=== PATIENT | male | born 1940 | race African-American/Black ===

== ENCOUNTER 2016-10-13 09:45 | Inpatient (IN) ==
[2016-10-13 10:13] LABS: Basophils % 0.7 % (0.0-0.8); Eosinophils # 0.1 10*3/uL (0.0-0.87); Eosinophils % 2.1 % (0.00-10.9); Hematocrit 35.4 VOL% (42.0-52.0); Hemoglobin 12.1 GM/DL (14.0-18.0); Immature Granulocytes % 0.2 %; Immature Granulocytes Absolute 0.01 #; Lymphocytes # 1.1 10*3/uL (1.4-4.0); Lymphocytes % 18.8 % (21.2-54.2); Mean Corpuscular HGB Conc 34.2 GM/DL (32-36); Mean Corpuscular Hemoglobin 30 PG (27-34); Mean Corpuscular Volume 88.1 FL (87-102); Mean Platelet Volume 9.6 FL (9.6-12.0); Monocytes # 0.3 10*3/uL (0.11-0.8); Neutrophils # 4.1 10*3/uL (1.4-7.4); Neutrophils % 72.2 % (38.7-73.9); Platelet Count 195 T/CUMM (130-400); Red Blood Count 4.02 MC/CUMM (3.8-5.5); White Blood Count 5.6 T/CUMM (4-12)
--- NOTE | 2016-10-13 10:31 | CT Report ---
History is left arm numbness. Comparison 10/30/2010 The ventricles are normal in size. No acute intracranial hemorrhage, mass effect, or evidence of acute cortical stroke seen. Impression: No acute intracranial pathology seen. The CT exam was performed using one or more of the following dose reduction techniques: Automated exposure control, adjustment of the mA and/or kV according to patient size, or use of iterative reconstruction technique. PROCEDURE INTERPRETED AT [facility] DEPARTMENT OF RADIOLOGY Final Report Signed by: Dr. Deloris Lam
--- NOTE | 2016-10-13 10:32 | XRay Report ---
History is cardiomegaly Comparison 09/17/2015 The heart is mildly enlarged. Hilar contours unchanged The eventration left diaphragm again seen without congestive failure or confluent infiltrates seen Confluent shadows overlie the right base Impression: Mild cardiomegaly PROCEDURE INTERPRETED AT [facility] DEPARTMENT OF RADIOLOGY Final Report Signed by: Dr. Deloris Lam
[2016-10-13 10:35] LABS: Eosinophils 1 % (0-10); Hypochromasia 1+; Lymphocytes 13 % (20-55); Segmented Neutrophils 78 % (50-85); Total Cells Counted 100
[2016-10-13 10:36] LABS: Microcytosis Slight; Platelet Estimate Adequate
--- NOTE | 2016-10-13 10:53 | EKG Report ---
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
[2016-10-13 10:54] LABS: Albumin 3.7 G/DL (3.4-5.0); Bilirubin,Total 0.4 MG/DL (0.2-1.0); Calcium 9.3 MG/DL (8.5-10.1); Osmolality,Calculated 283.3 MOS/KG (273-304); Potassium 4.1 MMOL/L (3.5-5.1); Total Protein 6.7 G/DL (6.4-8.3)
--- NOTE | 2016-10-13 11:21 | Emergency Department Note ---
Nikko Rubalcava Brooke, am scribing for, and in the presence of, Davonte Andrews MD 10:14. Darryl Rubalcava Phillip K, MD, personally performed the services described in this documentation, ascribed by Carolann El in my presence, and it is both accurate and complete . Arrival - Arrival Chief Complaint: Neuro Stated Complaint: Left arm numb and hand ED Nursing Triage Note: pt went to bed at 2130 last night normal - pt states that he woke about 2 am with left arm numbness and tingling - no slurred speech - Mode of Arrival: Ambulatory Limitations: No Limitations Source: Patient, RN Notes Reviewed Time Seen by Provider: 10/13/16 10:05 - History of Present Illness HPI Narrative: Patient is a 75 year old male who presents to the ED with c/o left arm and hand numbness and weakness. Patient says he woke up around 0200 this morning with the numbness and weakness. He says he was fine before going to bed last night. 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 He says his left leg has been weak, "for a while," and says it did not change with the left arm/hand weakness and numbness. He denies having a headache. He does not have a history of TIA or CVA but does have PMHx of HTN, NIDDM, diverticulitis, and AR. Patient has not taken any of his medications this morning, including an ASA that he normally does take daily. Patient's Primary Care Provider is Dr. Morfin and his Human Factors Advisor Lead is Dr. Bey. Onset (ago): hour(s) (7) Allergies/Adverse Reactions: Allergies Allergy/AdvReac Type Severity Reaction Status Date / Time No Known Allergies Allergy Verified 08/22/14 11:05 Home Medications: Home Medications Medication Instructions Recorded Confirmed Type Probenecid [Benemid] 500 mg PO BEDTIME 08/22/14 10/13/16 History Quinapril HCl [Accupril] 40 mg PO DAILY 08/22/14 10/13/16 History Terazosin [Hytrin] 10 mg PO BEDTIME 08/22/14 10/13/16 History glipiZIDE [Glipizide] 10 mg PO BID 08/22/14 10/13/16 History metFORMIN [Glucophage] 1,000 mg PO BID W/MEALS 08/22/14 10/13/16 History Omeprazole 20 mg PO BEDTIME 09/17/15 10/13/16 History Aspirin EC Tab 81 mg PO DAILY 10/13/16 10/13/16 History Gabapentin 600 mg PO TID 10/13/16 10/13/16 History Review of System - Review of System 12 point system: reviewed and no additional remarkable complaints except as stated - Review of System Constitutional: Absent: fever Respiratory: Absent: respiratory distress Skin: Absent: rash Neurological: Present: weakness (left arm/hand), numbness (left arm/hand). Absent: headache Medical,Surgical,& Family Hx - Medical History Cardio: History of: Hypertension, [place] Endocrine: History of: Diabetes Mellitus (NIDDM) Gastrointestinal: History of: Diverticulitis/ Diverticulosis - Social History Smoking Status: Never smoker Frequency of Alcohol Use: None Type of Drug Use: None Exam Vital Signs: Vital Signs Temperature 98.5 F 10/13/16 10:14 Pulse Rate 61 10/13/16 10:50 Respiratory Rate 21 10/13/16 10:50 Blood Pressure 145/81 10/13/16 10:50 O2 Sat by Pulse Oximetry 99 10/13/16 10:50 - General General appearance: alert, in no apparent distress - Head Head exam: Present: atraumatic, normocephalic - Eye Eye exam: Present: normal appearance, PERRL, EOMI - ENT ENT exam: Present: normal exam - Neck Neck exam: Present: normal inspection - Chest Chest inspection: Present: normal inspection, symmetric chest wall rise - Respiratory Respiratory exam: Present: normal lung sounds bilaterally - Cardiovascular Cardiovascular exam: Present: regular rate, normal rhythm, normal heart sounds - Abdominal Exam Abdominal exam: Present: soft, normal bowel sounds. Absent: distention, tenderness - Extremities Exam Extremities exam: Present: normal inspection - Back Exam Back exam: Present: normal inspection - Neurological Exam Neurological exam: Present: alert, oriented X3, other (Decreased fine motor coordination in the left hand. Decreased sensation in the left arm. No facial assymetry but there is some slight numbness to the left side of the face. Weakness in the left arm but normal in left leg.) - Psychiatric Psychiatric exam: Present: normal affect, normal mood - Skin Skin exam: Present: warm, dry, intact, normal color Course Course Narrative: Patient discussed with the hospitalist. Results - Labs CBC & BMP: 10/13/16 10:08 10/13/16 10:23 Lab Results: I have reviewed the patients labs Labs: Laboratory Tests 10/13/16 10:08 WBC 5.6 RBC 4.02 Hgb 12.1 L Hct 35.4 L MCV 88.1 MCH 30 MCHC 34.2 RDW 12.0 Plt Count 195 MPV 9.6 Neut % (Auto) 72.2 Lymph % (Auto) 18.8 L [place] % (Auto) 6.0 Eos % (Auto) 2.1 Baso % (Auto) 0.7 Neut # (Auto) 4.1 Lymph # (Auto) 1.1 L [place] # (Auto) 0.3 Eos # (Auto) 0.1 Baso # (Auto) 0.0 Total Counted 100 Immature Gran % 0.2 Nucleated RBC % 0.0 Immature Gran # 0.01 Segmented Neutrophils 78 Lymphocytes 13 L Monocytes 8 Eosinophils 1 Nucleated RBCs # 0.00 Platelet Estimate Adequate Hypochromasia 1+ Microcytosis Slight Laboratory Tests 10/13/16 10/13/16 10/13/16 10:08 10:23 10:42 Total Counted 100 Segmented Neutrophils 78 Lymphocytes 13 L Monocytes 8 Eosinophils 1 Platelet Estimate Adequate Hypochromasia 1+ Microcytosis Slight Sodium 141 Potassium 4.1 Chloride 106 Carbon Dioxide 28 Anion Gap 11.1 BUN 11 Creatinine 1.10 GFR Calculation 80 BUN/Creatinine Ratio 10.00 Glucose 163 H POC Glucose 191 H Calculated Osmolality 283.3 Calcium 9.3 Total Bilirubin 0.40 AST 27 ALT 29 Alkaline Phosphatase 62 Total Protein 6.7 Albumin 3.7 Globulin 3.0 Albumin/Globulin Ratio 1.2 - Diagnostic Findings Procedure: Chest x-ray: report reviewed by me (Mild Cardiomegaly.), CT: report reviewed by me (CT head/brain wo con: No acute intracranial pathology seen.) Disposition Clinical Impression: Cerebrovascular accident, Transient cerebral ischemia Case discussed with: patient, patient's family Disposition: Still a Patient Condition: Guarded Additional Instructions: Admit to the hospitalist. Consult neurology.
[2016-10-13 11:23] LABS: Apearance,Urine CLEAR (Clear); Bacteria,Urine Occasional /HPF (Few); Bilirubin,Urine Negative (Negative); Blood, Urine Negative (Negative); Glucose,Urine (UA) Negative (Negative); Ketones,Urine Negative (Negative); Nitrite,Urine Negative (Negative); Protein,Urine Negative; RBC,Urine 1 /HPF (0-4); Squamous Epithelial Cell,Urine Occasional /HPF (0-10); Urine Color Yellow (Yellow); Urine Urobilinogen < 2.0 EU/DL (0.2-1.0); WBC,Urine 1 /HPF (0-6)
--- NOTE | 2016-10-13 11:58 | Hospitalist History & Physical ---
Assessment and Plan - Time spent with patient Time spent with patient: Greater than 30 minutes (1) Weakness of left upper extremity Status: Acute Assessment and plan: Patient notes left upper extremity weakness, more prominent in the hand than the arm. He has been admitted for CVA rule out. His CT is negative for any intracranial abnormalities. Will obtain bedside swallow study. Carotid Dopplers. Possible MRA of the brain. PT/OT. Consult neurology. Current Visit: Yes (2) Diabetes mellitus Status: Acute Assessment and plan: Diabetic consistent diet. Accu-Cheks ACHS. Sliding scale insulin per protocol. Hemoglobin A1c. Hold metformin. Current Visit: Yes (3) Hypertension Status: Acute Assessment and plan: Continue home medications. Current Visit: Yes History of Present Illness Chief complaint: Right arm/hand weakness History of present illness: Mr. Ramirez is a 75 year old -[place] male with a past medical history significant for [place] x3 (age 32, 33 and 37), diabetes mellitus, hypertension who presents to the [facility] ED today with complains of left arm and hand weakness having onset at 0200 this morning. The patient reports that he woke this morning around 0200 and noticed that his left hand felt "numb and cold". Thinking it was just cool from sleeping under the fan, he put his arm under the cover and attempted to return to sleep. When he got up this morning, he still felt "funny" and called his son to bring him to the ED. He denies slurred speech , weakness in his left leg or facial numbness. Patient notes that he has recently started to notice lapses in his memory and an inability to verbally express himself. On exam, he does have reduced strength in his left hand as compared to his right. However, the patient admits this is better than this morning. He is now able to grasp a pen and pull himself up with his left arm. His sensory function to the dorsal aspect of his left hand is reduced. Proprioception and graphesthesia are intact. There is no facial droop or assymetry. Speech is intact, audible, intelligible and appropriate. Head CT shows no evidence of acute intracranial pathology. CXR shows mild cardiomegaly. Lab work reveals: WBC 5.6, hemoglobin 12.1, hematocrit 35.4, platelets 195, sodium 141, potassium 4.1, chloride 106, BUN 11, creatinine 1.1, glucose 163. Urinalysis unremarkable. Patient is a full code. Patient's son was at bedside. Case has been discussed with Dr. Alvarado, admitting physician, the patient will be admitted to the hospital medicine service for further evaluation and treatment. Of note, his recently had a stroke and is hospitalized in a [facility]. Home Medications Medication Instructions Recorded Confirmed Type Probenecid [Benemid] 500 mg PO BEDTIME 08/22/14 10/13/16 History Quinapril HCl [Accupril] 40 mg PO DAILY 08/22/14 10/13/16 History Terazosin [Hytrin] 10 mg PO BEDTIME 08/22/14 10/13/16 History glipiZIDE [Glipizide] 10 mg PO BID 08/22/14 10/13/16 History metFORMIN [Glucophage] 1,000 mg PO BID W/MEALS 08/22/14 10/13/16 History Omeprazole 20 mg PO BEDTIME 09/17/15 10/13/16 History Aspirin EC Tab 81 mg PO DAILY 10/13/16 10/13/16 History Gabapentin 600 mg PO TID 10/13/16 10/13/16 History Allergies Allergy/AdvReac Type Severity Reaction Status Date / Time No Known Allergies Allergy Verified 08/22/14 11:05 Medical,Surgical,& Family Hx - Medical History Cardio: History of: Hypertension, [place] Endocrine: History of: Diabetes Mellitus (NIDDM) Gastrointestinal: History of: Diverticulitis/ Diverticulosis - Family History Family History: Reports;: Family Diabetes, Family Heart Disease, Family Hypertension - Social History Smoking Status: Never smoker Frequency of Alcohol Use: None Type of Drug Use: None Marital Status: Lives With:: Spouse Functional capacity: independent ambulation 12 point system: reviewed and no additional remarkable complaints except as stated Exam - Constitutional Vitals: Period Temp Pulse Resp BP Sys/Quigley Pulse Ox Last 24 Hr 98.5 F-98.5 F 49-84 16-21 139-151/54-84 21-99 General appearance: normal weight, no acute distress - Head Head exam: Present: normal inspection, normocephalic, atraumatic - Eye Eye exam: Present: EOMI. Absent: nystagmus Pupils: Present: PIERO, normal accommodation - ENT ENT exam: Present: normal exam - Neck Neck exam: Absent: lymphadenopathy, tenderness - Respiratory Respiratory exam: Present: clear to auscultation bilaterally. Absent: rales, rhonchi, wheezes - Cardiovascular Cardiovascular exam: Present: bradycardia. Absent: carotid bruit, gallop, rubs - GI/Abdominal GI/Abdominal exam: Present: normal bowel sounds, soft. Absent: rebound - Extremities Exam Extremities exam: Present: normal capillary refill, full ROM. Absent: edema - Neurological Exam Neurological exam: Present: alert, oriented X3, CN II-XII intact - Expanded Neurological Exam Neurological exam: Absent: ataxia Patient oriented to: Present: person, place, time Speech: Present: fluid speech Cranial nerves: EOM's intact: Normal, facial palsy with forehead movement: Normal, facial palsy without forehead movement: Normal, facial sensation: Normal , nystagmus: Normal, tongue deviation: Normal Cerebellar function: finger to nose: Normal Sensory exam: lower extremity light touch: Normal, lower extremity pin prick: Normal, UE 2 point discrimination: Abnormal Left, upper extremity light touch: Abnormal Left, upper extremity pin prick: Abnormal Left Neuro motor strength exam: LUE: 3, RUE: 5, LLE: 4, RLE: 5 Coma Scale Eye Opening: Spontaneous Coma Scale Motor Response: Obeys Commands Coma Scale Verbal Response: Oriented Coma Scale Total: 15 - Psychiatric Psychiatric exam: Present: normal affect, normal mood - Skin Skin exam: Present: normal color, warm, dry, intact Results - Labs CBC & BMP: 10/13/16 10:08 10/13/16 10:23 Lab Results: I have reviewed the past 24 hour labs - EKG EKG results: interpreted by LAUREL, sinus rhythm EKG shows: bradycardia - Diagnostic Findings Procedure: Chest x-ray: image reviewed by me, report reviewed by me ( cardiomegaly), CT: image reviewed by me, report reviewed by me (head: no intracranial abnormality) Quality Measures - Stroke Onset of Symptoms Date: 10/13/16 Onset of Symptoms Time: 05:00
[2016-10-13] MEDS ORDERED: GLUCAGON 1 MG VIAL IM PRN (13:49)
[2016-10-13] MEDS ORDERED: DEXTROSE 50% 25 GM/50 ML VIAL IV PRN (13:49)
[2016-10-13 15:52] LABS: Cholesterol 171 MG/DL (50-200); HDL Cholesterol 61 MG/DL (40-60); Triglycerides 122 MG/DL (2-150); Troponin I Only < 0.015 NG/ML (0.00-0.045); VLDL CHOLESTEROL 24.4 MG/DL
[2016-10-13 16:34] LABS: Barbiturates Screen,Urine Negative (Negative); Benzodiazepines Screen,Urine Negative (Negative); Cannabinoid Screen,Urine Negative (Negative); Opiate Screen,Urine Negative (Negative); Phencyclidine Screen,Urine Negative (Negative)
--- NOTE | 2016-10-13 16:48 | Magnetic Resonance Report ---
History: Left-sided weakness Date: 10/13/2016 Study: MRI brain without IV contrast Comparison exam: Noncontrast CT head 10/13/2016 The brain was imaged in 3 planes on the 1.5 Vita magnet without IV contrast, to include diffusion, T2, FLAIR, gradient-echo, and T1-weighted sequences. The exam was performed on the day of admission. The ventricles are midline in position without evidence of hydrocephalus. There is no Chiari I malformation. There is no evidence of acute ischemia on the diffusion sequence. There is some mild patchy increased FLAIR and T2 signal in the periventricular white matter without mass effect compatible with changes of small vessel disease. There is no mass effect or parenchymal hemorrhage. There is no extra-axial hematoma. There is a normal flow void in the superior sagittal sinus. There is no gross flow abnormality in the [place] area. There is no obvious cerebellopontine angle mass. Impression: No evidence of acute ischemia. Chronic changes of small vessel disease in the periventricular white matter PROCEDURE INTERPRETED AT [facility] DEPARTMENT OF RADIOLOGY Final Report Signed by: Dr. Nereida Jamison
[2016-10-13] MEDS: GABAPENTIN 600 MG TABLET PO SCH ×2 (17:30→21:09)
[2016-10-13] MEDS: QUINAPRIL 20 MG TABLET PO SCH (17:30)
[2016-10-13] MEDS: ASPIRIN EC 81 MG TABLET PO SCH (17:30)
[2016-10-13] MEDS: INSULIN LISPRO 100 UNIT/ML SUBCUT SCH ×2 (17:36→21:12)
--- NOTE | 2016-10-13 17:41 | Ultrasound Report ---
US carotid duplex BI Indication: Left-sided weakness. Comparison: None. Technique: Multiple longitudinal and transverse real-time sonographic images of the bilateral carotid arterial systems are obtained with grayscale, spectral, and color Doppler analysis. Findings: Peak systolic velocities within the right CCA, proximal ICA, and distal ICA are 55, 64, and 70 cm/s respectively. Peak systolic velocities within the left CCA, proximal ICA, and distal ICA are 70, 55, and 94 cm/s respectively. ICA/CCA ratios on the right and left are 1.3 and 1.3 respectively. Antegrade flow demonstrated within the bilateral vertebral arteries. Grayscale imaging demonstrates moderate bilateral atherosclerotic plaque. IMPRESSION: No convincing sonographic evidence of significant (50% or greater) narrowing of either cervical internal carotid artery. Indirect NASCET criteria utilized. PROCEDURE INTERPRETED AT [facility] DEPARTMENT OF RADIOLOGY Final Report Signed by: Dr Samm Rivera
[2016-10-13] MEDS ORDERED: TERAZOSIN 5 MG CAPSULE PO SCH (21:00)
[2016-10-13] MEDS ORDERED: PROBENECID 500 MG TABLET PO SCH (21:00)
[2016-10-13] MEDS: glipiZIDE 10 MG TABLET PO SCH (21:10)
[2016-10-14 03:18] LABS: Basophils % 0.5 % (0.0-0.8); Eosinophils # 0.1 10*3/uL (0.0-0.87); Eosinophils % 3.4 % (0.00-10.9); Hematocrit 33.6 VOL% (42.0-52.0); Hemoglobin 11.2 GM/DL (14.0-18.0); Immature Granulocytes % 0.3 %; Immature Granulocytes Absolute 0.01 #; Lymphocytes # 1.2 10*3/uL (1.4-4.0); Lymphocytes % 32.2 % (21.2-54.2); Mean Corpuscular HGB Conc 33.3 GM/DL (32-36); Mean Corpuscular Hemoglobin 30 PG (27-34); Mean Corpuscular Volume 88.4 FL (87-102); Mean Platelet Volume 9.5 FL (9.6-12.0); Monocytes # 0.3 10*3/uL (0.11-0.8); Monocytes % 8.7 % (1.7-12.7); Neutrophils # 2.1 10*3/uL (1.4-7.4); Neutrophils % 54.9 % (38.7-73.9); Platelet Count 168 T/CUMM (130-400); Red Cell Distribution Width 11.9 % (9.3-17.3); White Blood Count 3.8 T/CUMM (4-12)
[2016-10-14 03:56] LABS: Calcium 9.3 MG/DL (8.5-10.1); Osmolality,Calculated 283.8 MOS/KG (273-304); Potassium 3.6 MMOL/L (3.5-5.1)
[2016-10-14 04:56] LABS: Eosinophils 3 % (0-10); Lymphocytes 31 % (20-55); Segmented Neutrophils 59 % (50-85); Total Cells Counted 100
[2016-10-14 04:57] LABS: Platelet Estimate Normal
[2016-10-14 04:58] LABS: Hypochromasia Slight
--- NOTE | 2016-10-14 08:39 | Neurology Consult Note ---
History of Present Illness History of present illness: Mr. Ramirez is a 75 year old -[place] gentleman with a past medical history significant for [place] x3 , diabetes mellitus, hypertension who presents to the ER yesterday with complains of left arm and hand weakness having onset at 0200 in the morning. The patient reports that he woke this morning around 0200 and noticed that his left hand felt "numb and cold". Thinking it was just cool from sleeping under the fan, he put his arm under the cover and attempted to return to sleep. When he got up in the morning, he still felt "funny" and called his son to bring him to the ED. He denies slurred speech, weakness in his left leg or facial numbness. Patient notes that he has recently started to notice lapses in his memory and an inability to verbally express himself. MRI of the brain is unremarkable for any acute pathology. Carotid Dopplers is unremarkable Home Medications Medication Instructions Recorded Confirmed Type Probenecid [Benemid] 500 mg PO BEDTIME 08/22/14 10/13/16 History Quinapril HCl [Accupril] 40 mg PO DAILY 08/22/14 10/13/16 History Terazosin [Hytrin] 10 mg PO BEDTIME 08/22/14 10/13/16 History glipiZIDE [Glipizide] 10 mg PO BID 08/22/14 10/13/16 History metFORMIN [Glucophage] 1,000 mg PO BID W/MEALS 08/22/14 10/13/16 History Omeprazole 20 mg PO BEDTIME 09/17/15 10/13/16 History Aspirin EC Tab 81 mg PO DAILY 10/13/16 10/13/16 History Gabapentin 600 mg PO TID 10/13/16 10/13/16 History Allergies Allergy/AdvReac Type Severity Reaction Status Date / Time No Known Allergies Allergy Verified 08/22/14 11:05 12 point system: reviewed and no additional remarkable complaints except as stated Medical,Surgical,& Family Hx - Medical History Cardio: History of: Hypertension, [place] Endocrine: History of: Diabetes Mellitus (NIDDM) Gastrointestinal: History of: Diverticulitis/ Diverticulosis - Surgical History Cardiac Surgeries: Sugical HX of: Cardiac Catheterization - Family History Family History: Reports;: Family Diabetes, Family Heart Disease, Family Hypertension, Additional Family History (Father, Arthritis) - Social History Smoking Status: Never smoker Frequency of Alcohol Use: None Type of Drug Use: None Exam - Constitutional Vitals: Period Temp Pulse Resp BP Sys/Quigley Pulse Ox Last 24 Hr 97.6 F-98.5 F 46-84 16-22 115-202/54-98 21-100 Exam: GENERAL: Patient is in no acute distress. NECK: Neck is supple. There is no JVD. No carotid bruits present. No thyroid masses. CVS: First and second heart sounds are normal. There is no S3 present. Regular rate and rhythm. RESPIRATORY: Lungs are clear to auscultation without any rales or rhonchi. ABDOMEN: Soft and non-tender. Bowel sounds are present. There is no hepatosplenomegaly. EXT: There is no palpable edema. Peripheral pulses are present. Skin: No rashes Central Nervous system: General: Alert, awake and Oriented x 3 Speech: Fluent Comprehension: Intact and normal Facial expressions: Normal Cranial Nerves: CN1/Olfactory: Normal CN II/ Optic: Normal, Visual [place] unreliable CN III, and : PIERO & EOMI CN V: Normal & intact CN VII: face is symmetric CNVIII: Normal CN XI/X/XI/XII: Intact and Normal Motor: Bulk and Tone is normal. Strength in the right 5/5 Strength in the left 3-4/5 with predominant weakness in the left radial nerve distribution Sensory: Grossly intact for all the modalities of PP, LT and temp sense Reflexes: 1+ and symmetrical Cerebellar function: Normal finger to nose and heel to barros testing. 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
[2016-10-14] MEDS: GABAPENTIN 600 MG TABLET PO SCH (09:17)
[2016-10-14] MEDS: glipiZIDE 10 MG TABLET PO SCH (09:17)
[2016-10-14] MEDS: QUINAPRIL 20 MG TABLET PO SCH (09:17)
[2016-10-14] MEDS: ASPIRIN EC 81 MG TABLET PO SCH (09:18)
[2016-10-14] MEDS: INSULIN LISPRO 100 UNIT/ML SUBCUT SCH ×2 (09:20→12:33)
--- NOTE | 2016-10-14 11:37 | Discharge Summary ---
Hospital Course - Hospital Course Hospital Course: Pt is a 75 year old male with a hsitory of CAD, DM2, HTN who presented to the hospital with left arm numbness. He was placed in observation and TIA/stroke workup was done. CT was negative for any acute pathology. MRI of the brain was negative for acute stroke. Carotid Dopplers showed no rate limiting stenosis. EKG showed sinus bradycardia at approximately 50 bpm with a left anterior fascicular block. Chest x-ray showed mild cardiomegaly without any other pathology noted. Hemoglobin A1c was 6.4. Total cholesterol was 171, triglycerides 122, HDL of 61, and LDL of 92. TSH and vitamin B12 levels were pending at the time of dictation. Neurology evaluated the patient and noted a mononeuropathy of the left radial nerve. He recommended continuing on aspirin and outpatient follow-up for further evaluation and treatment. Once he was cleared by all consultants, patient was discharged to home for ongoing care. 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 Specialty Discharge - Follow Up or Referrals Follow up with: Eduardo Duffy MD [Physician] - 1 Week md, pcp [Other] - 2 Weeks Discharge Plan - Discharge Data Disposition: Disch To Home/Self Care Condition at Discharge: Stable Discharge Diet: diabetic diet, heart healthy Activity: resume usual activities as tolerated, as per physical therapy Contact your physician if you experience:: fever over 101, Difficulty voiding, Redness or swelling, Nausea/Vomiting, Shortness of breath, Bleeding, pain uncontrolled by pain medications - Discharge Medications Continue Terazosin [Hytrin] 10 mg PO BEDTIME Probenecid [Benemid] 500 mg PO BEDTIME Quinapril HCl [Accupril] 40 mg PO DAILY glipiZIDE [Glipizide] 10 mg PO BID Omeprazole 20 mg PO BEDTIME Gabapentin 600 mg PO TID Aspirin EC Tab 81 mg PO DAILY metFORMIN [Glucophage] 1,000 mg PO BID W/MEALS #0 - Follow Up or Referral Follow Up: Eduardo Duffy MD [Physician] - 1 Week - Forms/Instructions Exam - Constitutional Vitals: Period Temp Pulse Resp BP Sys/Quigley Pulse Ox Last 24 Hr 97.6 F-98.3 F 46-62 16-22 115-202/61-98 95-100 Exam: GEN: A and O x 3, NAD HEENT: Pupils are equal round and reactive to light. Extraocular muscles are intact. Sclerae clear. Conjunctive are pink. Nares are patent no discharge or epistaxis noted. Oropharynx is clear. No posterior pharyngeal lesions or thrush noted. Neck is supple. No lymphadenopathy or thyromegaly appreciated. No JVD Cardiovascular exam reveals regular rate and rhythm normal S1-S2 no obvious murmurs rubs or gallop Lungs are clear to auscultation bilaterally with good aeration nonlabored breathing noted Abdomen is soft nontender nondistended positive bowel sounds no organomegaly or masses appreciated Extremity exam is warm and well-perfused no clubbing cyanosis or edema Neuro exam reveals cranial nerves II through XII are intact. Motor exam revealed 4 out of 5 strength of the left upper extremity from the elbow to the wrist with 5 out of 5 strength of the other extremities. Sensation was decreased from the elbow to the fingers on the left arm. Otherwise sensory exam was grossly intact. He had a normal finger nose exam. Gait was not assessed. Babinski was absent. No clonus noted. +2 patellar and brachial reflexes bilaterally. Discharge Results Procedures and tests throughout hospitalization: Pending Orders 10/15/16 04:00 Basic Metabolic Panel IN AM Comp Blood Count Auto Diff IN AM 10/16/16 04:00 Basic Metabolic Panel IN AM Comp Blood Count Auto Diff IN AM Labs on day of discharge: Labs from last 24 hours 10/14/16 10/14/16 10/14/16 10:56 09:22 03:08 WBC RBC Hgb Hct MCV MCH MCHC RDW Plt Count MPV Neut % (Auto) Lymph % (Auto) [place] % (Auto) Eos % (Auto) Baso % (Auto) Neut # (Auto) Lymph # (Auto) [place] # (Auto) Eos # (Auto) Baso # (Auto) Total Counted Immature Gran % Nucleated RBC % Immature Gran # Segmented Neutrophils Lymphocytes Monocytes Eosinophils Nucleated RBCs # Platelet Estimate Hypochromasia Sodium 144 Potassium 3.6 Chloride 106 Carbon Dioxide 32 Anion Gap 9.6 BUN 12 Creatinine 1.00 GFR Calculation 90 BUN/Creatinine Ratio 12.00 Glucose 67 L POC Glucose 111 H 164 H Hemoglobin A1c Calculated Osmolality 283.8 Calcium 9.3 Troponin I Triglycerides Cholesterol LDL Cholesterol VLDL Cholesterol HDL Cholesterol Heart Disease Risk Ratio Urine Opiates Screen Ur Barbiturates Screen Ur Phencyclidine Scrn U Amphetamine/Methamph U Benzodiazepines Scrn U Cocaine Metab Screen U Cannabinoids Screen 10/14/16 10/13/16 10/13/16 03:08 20:36 20:10 WBC 3.8 L D RBC 3.80 Hgb 11.2 L Hct 33.6 L MCV 88.4 MCH 30 MCHC 33.3 RDW 11.9 Plt Count 168 MPV 9.5 L Neut % (Auto) 54.9 Lymph % (Auto) 32.2 [place] % (Auto) 8.7 Eos % (Auto) 3.4 Baso % (Auto) 0.5 Neut # (Auto) 2.1 Lymph # (Auto) 1.2 L [place] # (Auto) 0.3 Eos # (Auto) 0.1 Baso # (Auto) 0.0 Total Counted 100 Immature Gran % 0.3 Nucleated RBC % 0.0 Immature Gran # 0.01 Segmented Neutrophils 59 Lymphocytes 31 Monocytes 7 Eosinophils 3 Nucleated RBCs # 0.00 Platelet Estimate Normal Hypochromasia Slight Sodium Potassium Chloride Carbon Dioxide Anion Gap BUN Creatinine GFR Calculation BUN/Creatinine Ratio Glucose POC Glucose 137 H Hemoglobin A1c Calculated Osmolality Calcium Troponin I 0.027 Triglycerides Cholesterol LDL Cholesterol VLDL Cholesterol HDL Cholesterol Heart Disease Risk Ratio Urine Opiates Screen Ur Barbiturates Screen Ur Phencyclidine Scrn U Amphetamine/Methamph U Benzodiazepines Scrn U Cocaine Metab Screen U Cannabinoids Screen 10/13/16 10/13/16 10/13/16 17:37 16:33 14:51 WBC RBC Hgb Hct MCV MCH MCHC RDW Plt Count MPV Neut % (Auto) Lymph % (Auto) [place] % (Auto) Eos % (Auto) Baso % (Auto) Neut # (Auto) Lymph # (Auto) [place] # (Auto) Eos # (Auto) Baso # (Auto) Total Counted Immature Gran % Nucleated RBC % Immature Gran # Segmented Neutrophils Lymphocytes Monocytes Eosinophils Nucleated RBCs # Platelet Estimate Hypochromasia Sodium Potassium Chloride Carbon Dioxide Anion Gap BUN Creatinine GFR Calculation BUN/Creatinine Ratio Glucose POC Glucose 166 H Hemoglobin A1c Calculated Osmolality Calcium Troponin I 0.019 < 0.015 Triglycerides 122 Cholesterol 171 LDL Cholesterol 92.0 VLDL Cholesterol 24.4 HDL Cholesterol 61 H Heart Disease Risk Ratio 2.80 Urine Opiates Screen Ur Barbiturates Screen Ur Phencyclidine Scrn U Amphetamine/Methamph U Benzodiazepines Scrn U Cocaine Metab Screen U Cannabinoids Screen 10/13/16 10/13/16 14:50 10:02 WBC RBC Hgb Hct MCV MCH MCHC RDW Plt Count MPV Neut % (Auto) Lymph % (Auto) [place] % (Auto) Eos % (Auto) Baso % (Auto) Neut # (Auto) Lymph # (Auto) [place] # (Auto) Eos # (Auto) Baso # (Auto) Total Counted Immature Gran % Nucleated RBC % Immature Gran # Segmented Neutrophils Lymphocytes Monocytes Eosinophils Nucleated RBCs # Platelet Estimate Hypochromasia Sodium Potassium Chloride Carbon Dioxide Anion Gap BUN Creatinine GFR Calculation BUN/Creatinine Ratio Glucose POC Glucose Hemoglobin A1c 6.4 H Calculated Osmolality Calcium Troponin I Triglycerides Cholesterol LDL Cholesterol VLDL Cholesterol HDL Cholesterol Heart Disease Risk Ratio Urine Opiates Screen Negative Ur Barbiturates Screen Negative Ur Phencyclidine Scrn Negative U Amphetamine/Methamph Negative U Benzodiazepines Scrn Negative U Cocaine Metab Screen Negative U Cannabinoids Screen Negative DS: Provider Date of admission: 10/13/16 11:39 Primary care physician: . No PCP Attending physician on admission: Tony Alvarado MD Consults: 10/13/16 13:27 Consult to Dietitian [CONS] Routine Reason for Dietitian: Diet Recommendations Consult Comment: Diverticulitis, Dentures (Can't eat meat), Eats all vegetables 10/13/16 14:13 Consult to Case Mgmt/Social Srvs [CONS] Routine Reason for Case Mgmt/Social Srvs: Discharge Planning Consult to Occupational Therapy [CONS] Routine Reason for Occupational Therapy: Evaluate and Treat Consult Comment: Stroke Consult to Physical Therapy [CONS] Routine Reason for Physical Therapy: Evaluate and Treat Consult Comment: stroke 10/13/16 14:48 Consult to Physician [CONS] Routine Comment: Left sided weakness Consulting Provider: Eduardo Duffy Consulting Provider Notified: Yes When should Consulting Provider be notified: Now Person Notified: PRISCILLA Date Notified: 10/13/16 Time Notified: 15:55 10/14/16 09:11 Consult to Case Mgmt/Social Srvs [CONS] Routine Reason for Case Mgmt/Social Srvs: Discharge Planning Consult Comment: Outpatient occupational therapy in [place] Discharging clinician: Melody Quintero MD
[2016-10-14 12:31] VITALS: BP 143/72
[2016-10-14 12:31] LABS: Free T4 (Free Thyroxine) 1.01 NG/DL (0.76-1.46); Thyroid Stimulating Hormone 1.21 uIU/ml (0.358-3.74)
[2016-10-14] MEDS ORDERED: PANTOPRAZOLE 40 MG TABLET PO SCH (21:00)
== END 2016-10-14 13:45 | disposition home health service (06) | DRG 74 ==
LOC: N.ED 09:45 → N.EDINP 11:39 → SUATTDRO 11:39 → N.4E 12:44
PROVIDERS: ADMIT Hospitalist; ATTEND Pediatrics

== ENCOUNTER 2016-11-30 08:28 | Observation (INO) ==
[2016-11-30] MEDS ORDERED: ASPIRIN 325 MG TABLET PO STA (08:43)
[2016-11-30] MEDS ORDERED: ONDANSETRON 4 MG/2 ML VIAL IV PRN ×2 (08:43→12:14)
[2016-11-30] MEDS ORDERED: NITROGLYCERIN 2% OINT 1 INCH/GM PACK TOP STA (08:43)
[2016-11-30] MEDS ORDERED: ENOXAPARIN 100 MG/ML SYRINGE SUBCUT STA (08:43)
[2016-11-30] MEDS ORDERED: MORPHINE 2 MG/1 ML SYRINGE IV PRN ×2 (08:43→12:14)
--- NOTE | 2016-11-30 08:47 | EKG Report ---
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
--- NOTE | 2016-11-30 08:54 | Emergency Department Note ---
Ivette Rubalcava Hilary, am scribing for, and in the presence of, Kelechi Waters MD 08: 51. Evelin Rubalcava James D, MD, personally performed the services described in this documentation, ascribed by Raquel Steele in my presence, and it is both accurate and complete [id number] . Arrival - Arrival Chief Complaint: Chest Pain Stated Complaint: chest pain ED Nursing Triage Note: pt arrived via ems with c/o chest pain. States he woke up at 0400 w/ mid-sternal chest pain that radiates to back. denies nausea or diaphoresis. PMH: [place], HTN Mode of Arrival: Stretcher Limitations: No Limitations Source: Patient Time Seen by Provider: 11/30/16 08:43 - History of Present Illness HPI Narrative: Pt is a 76 y/o male brought to the ED via EMS for c/o chest pain which onset 0400 this morning. He states that his pain is tight along his whole chest. He denies nausea or diaphoresis but confirms SOB. Pt has a PMHx of [place] and HTN. No other complaints or problems stated in the ED. Onset (ago): hour(s) Consistency: constant Severity: moderate Severity scale (1-10): 2 Quality: other (tightness) Allergies/Adverse Reactions: Allergies Allergy/AdvReac Type Severity Reaction Status Date / Time No Known Allergies Allergy Verified 08/22/14 11:05 Home Medications: Home Medications Medication Instructions Recorded Confirmed Type Probenecid [Benemid] 500 mg PO BEDTIME 08/22/14 10/13/16 History Quinapril HCl [Accupril] 40 mg PO DAILY 08/22/14 10/13/16 History Terazosin [Hytrin] 10 mg PO BEDTIME 08/22/14 10/13/16 History glipiZIDE [Glipizide] 10 mg PO BID 08/22/14 10/13/16 History Omeprazole 20 mg PO BEDTIME 09/17/15 10/13/16 History Aspirin EC Tab 81 mg PO DAILY 10/13/16 10/13/16 History Gabapentin 600 mg PO TID 10/13/16 10/13/16 History metFORMIN [Glucophage] 1,000 mg PO BID W/MEALS #0 10/14/16 10/13/16 Rx Sulfameth/Trimeth 400-80 Tab 1 tablet PO BID #14 tablet 11/09/16 Rx [Bactrim Tab] Review of System - Review of System 12 point system: reviewed and no additional remarkable complaints except as stated - Review of System Constitutional: Absent: diaphoresis, fever Respiratory: Present: respiratory distress (SOB) Cardiovascular: Present: chest pain Gastrointestinal: Absent: nausea Medical,Surgical,& Family Hx - Medical History Cardio: History of: Hypertension, [place] Endocrine: History of: Diabetes Mellitus (NIDDM) Gastrointestinal: History of: Diverticulitis/ Diverticulosis - Surgical History Cardiac Surgeries: Sugical HX of: Cardiac Catheterization - Family History Family History: Reports;: Family Diabetes, Family Heart Disease, Family Hypertension - Social History Smoking Status: Never smoker Frequency of Alcohol Use: None Type of Drug Use: None Exam Physical Examination: GENERAL: This is a well-nourished, well-developed black male in no apparent distress. VITAL SIGNS: Temperature: 98.4 Pulse: 78 Respiratory: 23 Blood Pressure: 119/ 74 O2 Sat: 98 HEENT: Head is normocephalic and atraumatic. Pupils are equally round and reactive to light. Extraocular movement are intact. Oropharynx is benign with moist mucous membranes. NECK: Neck is soft and supple without tenderness. There are no masses. There is no lymphadenopathy. LUNGS: Lungs are clear to auscultation bilaterally. Chest rises symmetrically. There is no chest wall tenderness. CV: Heart is regular rate and rhythm without murmurs, rubs, or gallops. ABDOMEN: Abdomen is soft, non-tender to palpation. There are no abnormal masses palpated. There is no organomegaly. Bowel sounds are present and active. SKIN: Skin is warm and dry. No rash. EXTREMITIES: Patient has full range of motion without tenderness. There is no pedal edema. NEUROLOGIC: Awake, alert, and oriented x4. Cranial nerves II through XII are grossly intact. There are no motorsensory deficits. PSYCHIATRIC: Normal affect. Normal mood. Vital Signs: Vital Signs Temperature 98.4 F 11/30/16 08:37 Pulse Rate 53 L 11/30/16 09:00 Respiratory Rate 15 11/30/16 09:00 Blood Pressure 118/72 11/30/16 09:00 O2 Sat by Pulse Oximetry 99 11/30/16 09:00 Course - Consultations Consultation #1: Discussed with hospitalist. Patient will be admitted to their service. Time: 10:04 Results - Labs CBC & BMP: 11/30/16 08:59 11/30/16 08:59 Lab Results: I have reviewed the patients labs Labs: Laboratory Tests 11/30/16 08:59 WBC 4.2 RBC 4.06 Hgb 12.1 L Hct 34.7 L MCV 85.5 L Plt Count 226 MPV 9.2 L Lymph # (Auto) 0.9 L Laboratory Tests 11/30/16 11/30/16 11/30/16 08:59 08:59 08:59 Sodium 131 L Potassium 5.7 H Chloride 97 L Calculated Osmolality 263.7 L Troponin I < 0.015 Urine pH 6.0 Ur Specific [place] 1.008 Urine Ketones 5 Urine Urobilinogen < 2.0 H Urine RBC 1 Urine WBC 2 Laboratory Tests 11/30/16 11/30/16 08:59 08:59 Troponin I < 0.015 Urine Ketones 5 Urine RBC 1 Urine WBC 2 - EKG EKG results: interpreted by ERMD - Impressions EKG: Sinus rhythm with sinus arrhythmia, nonspecific ST-T wave changes, left axis deviation. Rate 66 - Diagnostic Findings Procedure: Chest x-ray: image reviewed by me, report reviewed by me (1. Mild alveolar interstitial densities in the perihilar regions. ) Disposition Clinical Impression: Chest pain, Coronary artery disease Case discussed with: patient Disposition: Disch To Home/Self Care Condition: Stable Time of Disposition: 10:04
[2016-11-30] MEDS ORDERED: ENOXAPARIN 80 MG/0.8 ML SYRINGE SUBCUT ONE (09:07)
[2016-11-30] MEDS ORDERED: ASPIRIN 325 MG TABLET ONE (09:07)
[2016-11-30] MEDS ORDERED: NITROGLYCERIN 2% OINT 1 INCH/GM PACK TOP ONE (09:07)
--- NOTE | 2016-11-30 09:16 | XRay Report ---
Exam: XR chest 2V Date: 11/30/2016 8:43 AM Indication: Chest pain Comparison: 11/09/2016 Technical:PA lateral Findings: Mild eventration of left hemidiaphragm. Some patchy areas of interstitial alveolar density present in the right infrahilar region left perihilar region. Degenerative change present thoracic spine with lateral marginal osteophytes and anterior osteophytes. Mediastinum reveals no acute findings. Impression: 1. Mild alveolar interstitial densities in the perihilar regions. This could represent asymmetric pneumonic infiltrate or asymmetric edema not otherwise clarified PROCEDURE INTERPRETED AT [facility] DEPARTMENT OF RADIOLOGY Final Report Signed by: Dr. Lb Bella
[2016-11-30 09:17] LABS: Basophils % 0.7 % (0.0-0.8); Eosinophils # 0.1 10*3/uL (0.0-0.87); Eosinophils % 1.4 % (0.00-10.9); Hematocrit 34.7 VOL% (42.0-52.0); Hemoglobin 12.1 GM/DL (14.0-18.0); Immature Granulocytes % 0.2 %; Immature Granulocytes Absolute 0.01 #; Lymphocytes # 0.9 10*3/uL (1.4-4.0); Lymphocytes % 22.1 % (21.2-54.2); Mean Corpuscular HGB Conc 34.9 GM/DL (32-36); Mean Corpuscular Hemoglobin 30 PG (27-34); Mean Corpuscular Volume 85.5 FL (87-102); Mean Platelet Volume 9.2 FL (9.6-12.0); Monocytes # 0.4 10*3/uL (0.11-0.8); Monocytes % 8.6 % (1.7-12.7); Neutrophils # 2.8 10*3/uL (1.4-7.4); Platelet Count 226 T/CUMM (130-400); Red Blood Count 4.06 MC/CUMM (3.8-5.5); Red Cell Distribution Width 11.6 % (9.3-17.3); White Blood Count 4.2 T/CUMM (4-12)
[2016-11-30 09:42] LABS: Apearance,Urine CLEAR (Clear); Bilirubin,Urine Negative (Negative); Blood, Urine Negative (Negative); Glucose,Urine (UA) Negative (Negative); Ketones,Urine 5 mg/dL (Negative); Nitrite,Urine Negative (Negative); Protein,Urine Negative; RBC,Urine 1 /HPF (0-4); Urine Color Straw (Yellow); Urine Specific Gravity 1.008 (1.001-1.035); Urine Urobilinogen < 2.0 EU/DL (0.2-1.0); WBC,Urine 2 /HPF (0-6)
[2016-11-30 09:43] LABS: INR 1.1; PT Patient Result 11.2 SECS; Partial Thromboplastin Time 25.8 SECS (0-40)
[2016-11-30 09:52] LABS: Albumin 3.8 G/DL (3.4-5.0); Bilirubin,Total 0.5 MG/DL (0.2-1.0); Calcium 9.3 MG/DL (8.5-10.1); Osmolality,Calculated 263.7 MOS/KG (273-304); Potassium 5.7 MMOL/L (3.5-5.1); Total Protein 7.1 G/DL (6.4-8.3)
--- NOTE | 2016-11-30 11:36 | Hospitalist History & Physical ---
Assessment and Plan - Time spent with patient Time spent with patient: Greater than 30 minutes (1) Chest pain Status: Acute Assessment and plan: 11/30/16 Admit for further evaluation of chest tightness with exertion and associated shortness of breath start IV hydration repeat serial troponin repeat EKG repeat a.m. labs ASA daily PRN pain medication Consult cardiology Hold Quinapril Echo DVT prophylaxis Will discuss with Dr Gomez for further recommendations with care. Current Visit: Yes History of Present Illness Chief complaint: chest tightness History of present illness: Mr. Ramirez is a 76 year old black male w/PMHx hypertension, MD, diabetes, diverticulitis and a benign stomach tumor removed presented to the ED via EMS for further evaluation of chest tightness across the entire chest with onset this a.m. at 04:00. He reports the sudden onset was after he got up and started getting dressed. He reports shortness of breath with exertion and chest tightness. He also reports frequent nightly urination x4-5 months. He denies sweating, fever, chills, or cough. IN ED: LABS: H&H 12.1 & 34.7, Sodium 131, K 5.7. CXR: mild alveolar interstitial densities in the perihilar regions, could represnt asymmetric pneumonic infilitrate or edema. EKG: sinus with rate 66. Hospitalist Services consulted for further evaluation of patient with admission. Denies smoking, alcohol use or drug use. PCP: Dr Granger (Ivan) After discussion with Dr Waters in the ED and Dr Gomez with Hospital Medicine, it was agreed to admit patient to telemetry for close monitoring. Home medications to be reviewed and reconciliation to follow. Home Medications Medication Instructions Recorded Confirmed Type Probenecid [Benemid] 500 mg PO BEDTIME 08/22/14 10/13/16 History Quinapril HCl [Accupril] 40 mg PO DAILY 08/22/14 10/13/16 History Terazosin [Hytrin] 10 mg PO BEDTIME 08/22/14 10/13/16 History glipiZIDE [Glipizide] 10 mg PO BID 08/22/14 10/13/16 History Omeprazole 20 mg PO BEDTIME 09/17/15 10/13/16 History Aspirin EC Tab 81 mg PO DAILY 10/13/16 10/13/16 History Gabapentin 600 mg PO TID 10/13/16 10/13/16 History metFORMIN [Glucophage] 1,000 mg PO BID W/MEALS #0 10/14/16 10/13/16 Rx Sulfameth/Trimeth 400-80 Tab 1 tablet PO BID #14 tablet 11/09/16 Rx [Bactrim Tab] Allergies Allergy/AdvReac Type Severity Reaction Status Date / Time No Known Allergies Allergy Verified 08/22/14 11:05 Medical,Surgical,& Family Hx - Medical History Cardio: History of: CAD, Hypertension, MD Endocrine: History of: Diabetes Mellitus (NIDDM) Gastrointestinal: History of: Diverticulitis/ Diverticulosis Musculoskeletal: History of: Degenerative Disk Disease - Surgical History Cardiac Surgeries: Sugical HX of: Cardiac Catheterization Abdominal Surgeries: Surgical HX of: Abdominal Surgery (a benign tumor removed) - Family History Family History: Reports;: Family Diabetes, Family Heart Disease, Family Hypertension - Social History Smoking Status: Never smoker Frequency of Alcohol Use: None Type of Drug Use: None Marital Status: Lives With:: Spouse Functional capacity: uses cane/walker (occasional) 12 point system: reviewed and no additional remarkable complaints except as stated - Constitutional Constitutional: Absent: chills, excessive sweating, fever(s) - Cardiovascular Cardiovascular: Present: chest pain with activity (chest tightness), dyspnea on exertion. Absent: chest pain at rest, diaphoresis, edema, radiating jaw, neck or arm pain, palpitations - Respiratory Respiratory: Present: dyspnea (with exertion). Absent: cough - Gastrointestinal Gastrointestinal: Absent: abdominal pain, bloating, nausea, vomiting - Genitourinary Genitourinary: Present: urinary frequency (for 4-5 months) - Neurological Neurological: Absent: dizziness, frequent falls, syncope Exam - Constitutional Vitals: Period Temp Pulse Resp BP Sys/Quigley Pulse Ox Last 24 Hr 98.4 F 50-78 15-24 101-120/64-74 98-99 General appearance: normal weight, no acute distress - Head Head exam: Present: normal inspection - Eye Eye exam: Present: EOMI Pupils: Present: PIERO - Neck Neck exam: Present: normal inspection. Absent: thyromegaly - Respiratory Respiratory exam: Present: clear to auscultation bilaterally. Absent: stridor, wheezes - Cardiovascular Cardiovascular exam: Present: regular rate and rhythm - GI/Abdominal GI/Abdominal exam: Present: normal bowel sounds, soft. Absent: tenderness, rebound - Extremities Exam Extremities exam: Present: full ROM. Absent: edema - Neurological Exam Neurological exam: Present: alert, oriented X3, CN II-XII intact - Psychiatric Psychiatric exam: Present: normal affect, normal mood. Absent: agitated, anxious - Skin Skin exam: Present: normal color, warm, dry Results - Labs CBC & BMP: 11/30/16 08:59 11/30/16 08:59 Lab Results: I have reviewed the past 24 hour labs - EKG EKG results: interpreted by ERMD - Diagnostic Findings Procedure: Chest x-ray: report reviewed by me (mild alveolar interstitial densities in perihilar regions; could represent asymmetric pneumonic infiltrate or asymmetric edema)
--- NOTE | 2016-11-30 12:13 | EKG Report ---
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
[2016-11-30] MEDS ORDERED: ACETAMINOPHEN 325 MG TABLET PO PRN (12:14)
[2016-11-30] MEDS ORDERED: SODIUM CHLORIDE 0.9% 1,000 ML IV SCH ×2 (12:14→15:22)
[2016-11-30] MEDS: ENOXAPARIN 40 MG/0.4 ML SYRINGE SUBCUT SCH (12:56)
[2016-11-30] MEDS ORDERED: diphenhydrAMINE CAP 50 MG CAPSULE ONE (13:42)
[2016-11-30] MEDS ORDERED: DIAZEPAM 5 MG TABLET ONE (13:43)
[2016-11-30] MEDS ORDERED: LIDOCAINE 1% 20 ML VIAL ONE (13:52)
[2016-11-30] MEDS ORDERED: DIAZEPAM 5 MG TABLET PO ONE (13:55)
[2016-11-30] MEDS ORDERED: diphenhydrAMINE CAP 50 MG CAPSULE PO ONE (13:55)
[2016-11-30] MEDS ORDERED: MEPERIDINE 25 MG/1 ML VIAL ONE (14:13)
[2016-11-30] MEDS ORDERED: MIDAZOLAM 2 MG/2 ML VIAL ONE (14:14)
--- NOTE | 2016-11-30 14:18 | History and Physical Update ---
Sedation H&P Update - History and Physical H&P was reviewed, the patient examined and there: are no changes in the patients condition since last H&P was completed. - Dictation Physical: refer to H&P completed by admitting physician - Physical Exam Mental Status: alert and oriented Heart: regular rate and rhythm Lung: clear to auscultation Abdomen: within normal limits Vitals: within normal limits - Sedation Plan for Sedation: minimal Patient Consent: Procedure disscussed with patient and patinet has consented., Risks and benefits were discussed with patient,including infection,, bleeding, injury to surrounding structures, seizure, temporary nerve, Patient understands and accepts potential risks/benefits and agrees to, proceed. (Left heart cath and possible PTCA or stent were discussed with the patient. The risk of the procedure include but are not limited to a small risk of injury to the vessel, abnormal heart rhythm, stroke, heart attack, need for emergent surgery, contrast reaction, restenosis, infection, or . The patient voices understanding, agrees with the plan, and desires to proceed with the heart catheterization.) ASA Class: II Airway Assessment: Class II: Soft palate, uvula, fauces visible
--- NOTE | 2016-11-30 14:23 | Cardiology Consult Note ---
Sabas Rubalcava Vanessa, RN, am scribing for, and in the presence of, Olamide Staley MD 14:21. Assessment and Plan - Time spent with patient Time spent with patient: Greater than 30 minutes (Due to assessment, planning, documentation, and medication review) (1) Chest pain Status: Acute Assessment and plan: SEE PLAN OF CARE LISTED BELOW. Current Visit: Yes (2) Diabetes mellitus Status: Chronic Assessment and plan: SEE PLAN OF CARE LISTED BELOW. Current Visit: No (3) History of coronary artery disease Status: Chronic Assessment and plan: SEE PLAN OF CARE LISTED BELOW. Current Visit: No (4) Hypertension Status: Chronic Assessment and plan: SEE PLAN OF CARE LISTED BELOW. 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 BEY History is impaired by the patient's poor memory and being a poor historian, the daughter is a very tangential historian as well. Mr. Ramirez, 76 year old BM, PMHx of dyslipidemia, hypertension, diabetes, and former smoking. He does have a history of previous CO, reportedly 3 previous heart attacks starting in his 30s, but denies previous history of PTCA and/or stenting. Other history includes GERD and arthritis. Patient has recently been seen by Dr. Bey at [facility] clinic for dyspnea on exertion with exertional chest tightness, flank pain that was suspicious for diverticulitis. He was scheduled for upcoming myocardial perfusion stress test and echocardiogram on December 13. However, this morning, patient woke up a little after 4 AM, and after awakening, noticed a sudden onset of chest tightness across entire chest area with associated dyspnea and some radiation into the left arm. He did not have diaphoresis, palpitations, presyncope, nausea/vomiting, or other. Initial 12-lead EKG with some nonspecific T-wave changes, troponin level 2 nondetectable. Chest x-ray this morning with mild alveolar densities of perihilar region technology sales representative of possible pneumonic infiltrate/edema. Lab work revealed hyponatremia with sodium 131, hyperkalemia with potassium 5.7. Renal function normal. H&H and PLTs normal. Patient was admitted to telemetry for observation by hospital service. Since arrival to hospital, patient had an additional 12-lead EKG at 1212 (PM), which demonstrated anterior ST elevation with inferior ST depression. There was a cardiology consult ordered. However, cardiology staff was not notified of new consult and happened to come across patient's name on rounding list at 1312. Patient was immediately seen and examined. His sister from [place] is present with him. labor relations representative present for exam and discussion. Lunch was currently being served, but fortunately, he did not eat. Denies further chest tightness or pain since arrival, and reports this was relieved earlier after getting nitroglycerin. Twelve-lead EKG repeated at bedside during exam with some improvement of elevation previously appreciated. BP 125/69. Pulse is 70s and regular. Clinical findings and recent history suspicious for angina and coronary disease. Will discuss case with Dr. Paris. Patient will be set up to undergo left heart catheterization for definitive coronary assessment and revascularization if indicated and able. Of note, it was difficult to determine whether or not he was actively having chest discomfort at the time of my evaluation. Apparently has lots of different discomforts which the family was wanting to discuss including flank pain, back pain, leg pain, head pain and they all occur in varying degrees of intensity and timing and have been occurring over a number of years. They do acknowledge that the patient has had some weight loss, and he has had a change in his stools. He has a microcytic pattern to his mild anemia as well. ASSESSMENT/PLAN: 1. EXERTIONAL CHEST PAIN - Clinical findings suspicious for angina and coronary disease. Will undergo LHC with possible PCI this afternoon per Dr. Paris 2. HYPERTENSION - Well controlled at this time. Review and continue antihypertensives 3. DYSLIPIDEMIA - Check FLP 4. DIABETES - Chronic. Glucose stable this afternoon. Defer to hospital medicine. The patient has a high risk dynamic ECG worrisome for critical stenosis affecting the lateral and possible inferior territory. We are going to proceed with cardiac catheterization urgently and I have personally discussed this case with Dr. paris. I discussed the role, risks and benefits with the family and the patient. He does not have contrast allergy. They believe he could be compliant with medications. Depending on the anatomy, consideration of bare- metal stenting should be made. CC: Kenzie Gomez MD - Home Medications and Allergies Home Medications: Home Medications Medication Instructions Recorded Confirmed Type Probenecid [Benemid] 500 mg PO BEDTIME 08/22/14 10/13/16 History Quinapril HCl [Accupril] 40 mg PO DAILY 08/22/14 10/13/16 History Terazosin [Hytrin] 10 mg PO BEDTIME 08/22/14 10/13/16 History glipiZIDE [Glipizide] 10 mg PO BID 08/22/14 10/13/16 History Omeprazole 20 mg PO BEDTIME 09/17/15 10/13/16 History Aspirin EC Tab 81 mg PO DAILY 10/13/16 10/13/16 History Gabapentin 600 mg PO TID 10/13/16 10/13/16 History metFORMIN [Glucophage] 1,000 mg PO BID W/MEALS #0 10/14/16 10/13/16 Rx Sulfameth/Trimeth 400-80 Tab 1 tablet PO BID #14 tablet 11/09/16 Rx [Bactrim Tab] Allergies/Adverse Reactions: Allergies Allergy/AdvReac Type Severity Reaction Status Date / Time No Known Allergies Allergy Verified 08/22/14 11:05 Medical,Surgical,& Family Hx - Medical History Cardio: History of: CAD, Hypertension, CO Neurology: No history of: Dementia, TIA Endocrine: History of: Diabetes Mellitus (NIDDM), Dyslipidemia No history of: Thyroid Disorder Respiratory: No history of: COPD, Obstructive Sleep Apnea Renal: No history of: Renal Failure Gastrointestinal: History of: Diverticulitis/ Diverticulosis, GERD Musculoskeletal: History of: Degenerative Disk Disease - Surgical History Cardiac Surgeries: Sugical HX of: Cardiac Catheterization Abdominal Surgeries: Surgical HX of: Abdominal Surgery (a benign tumor removed) - Family History Family History: Reports;: Family Diabetes, Family Heart Disease, Family Hypertension - Social History Smoking Status: Never smoker Frequency of Alcohol Use: None Type of Drug Use: None Physical Examination Vital Signs Temp Pulse Resp BP Pulse Ox 98.4 F 78 23 119/74 98 11/30/16 08:37 11/30/16 08:37 11/30/16 08:37 11/30/16 08:37 11/30/16 08:37 Exam: General appearance: normal weight, no acute distress - Head Head exam: Present: normal inspection, normocephalic, atraumatic. Absent: hematoma, laceration - Eye Eye exam: Present: EOMI. Absent: conjunctival injection, nystagmus, periorbital swelling, scleral icterus, laceration to eyelids Pupils: Present: PERRL. Absent: constricted, dilated, fixed, irregular, unequal - ENT ENT exam: Present: normal exam, normal external ear exam - Neck Neck exam: Present: normal inspection. Absent: lymphadenopathy, meningismus, tenderness, thyromegaly - Respiratory Respiratory exam: Present: clear to auscultation bilaterally. Absent: accessory muscle use, chest wall tenderness - Cardiovascular Cardiovascular exam: Present: regular rate and rhythm. Absent: carotid bruit, gallop, JVD, rubs - GI/Abdominal GI/Abdominal exam: Present: normal bowel sounds, soft. Absent: distended, firm , guarding, hernia, mass, tenderness, rebound. - Extremities Exam Extremities exam: Present: Decreased pulses, normal capillary refill. Absent: calf tenderness, edema - Back Exam Back exam: Present: normal inspection. Absent: muscle spasm, vertebral tenderness - Neurological Exam Neurological exam: Present: alert, oriented X3, grossly intact without resting or intention tremor - Psychiatric Psychiatric exam: Present: normal affect, normal mood - Skin Skin exam: Present: normal color, warm, dry, intact. Absent: cyanosis, diaphoretic, rash, urticaria Result/EKG - Labs CBC & BMP: 11/30/16 08:59 11/30/16 08:59 Lab Results: I have reviewed the past 24 hour labs Labs: Laboratory Results - last 24 hr 11/30/16 11/30/16 11/30/16 08:59 08:59 08:59 WBC RBC Hgb Hct MCV MCH MCHC RDW Plt Count MPV Neut % (Auto) Lymph % (Auto) [place] % (Auto) Eos % (Auto) Baso % (Auto) Neut # (Auto) Lymph # (Auto) [place] # (Auto) Eos # (Auto) Baso # (Auto) Immature Gran % Nucleated RBC % Immature Gran # Nucleated RBCs # Immature Plt Fraction INR 1.1 PT Patient/Control Mix 11.2 Circ Anticoag PTT 25.8 Sodium 131 L Potassium 5.7 H Chloride 97 L Carbon Dioxide 29 Anion Gap 10.7 BUN 18 Creatinine 1.10 GFR Calculation 79 BUN/Creatinine Ratio 16.00 Glucose 94 Calculated Osmolality 263.7 L Calcium 9.3 Total Bilirubin 0.50 AST 36 ALT 32 Alkaline Phosphatase 51 Troponin I Total Protein 7.1 Albumin 3.8 Globulin 3.3 Albumin/Globulin Ratio 1.1 Urine Color Straw Urine Appearance Clear Urine pH 6.0 Ur Specific [place] 1.008 Urine Protein Negative Urine Glucose (UA) Negative Urine Ketones 5 Urine Blood Negative Urine Nitrate Negative Urine Bilirubin Negative Urine Urobilinogen < 2.0 H Urine Leukocytes Trace Urine RBC 1 Urine WBC 2 Ur Culture Indicated? Not indicated 11/30/16 11/30/16 11/30/16 08:59 08:59 12:09 WBC 4.2 RBC 4.06 Hgb 12.1 L Hct 34.7 L MCV 85.5 L MCH 30 MCHC 34.9 RDW 11.6 Plt Count 226 MPV 9.2 L Neut % (Auto) 67.0 Lymph % (Auto) 22.1 [place] % (Auto) 8.6 Eos % (Auto) 1.4 Baso % (Auto) 0.7 Neut # (Auto) 2.8 Lymph # (Auto) 0.9 L [place] # (Auto) 0.4 Eos # (Auto) 0.1 Baso # (Auto) 0.0 Immature Gran % 0.2 Nucleated RBC % 0.0 Immature Gran # 0.01 Nucleated RBCs # 0.00 Immature Plt Fraction 0.0 INR PT Patient/Control Mix Circ Anticoag PTT Sodium Potassium Chloride Carbon Dioxide Anion Gap BUN Creatinine GFR Calculation BUN/Creatinine Ratio Glucose Calculated Osmolality Calcium Total Bilirubin AST ALT Alkaline Phosphatase Troponin I < 0.015 < 0.015 Total Protein Albumin Globulin Albumin/Globulin Ratio Urine Color Urine Appearance Urine pH Ur Specific [place] Urine Protein Urine Glucose (UA) Urine Ketones Urine Blood Urine Nitrate Urine Bilirubin Urine Urobilinogen Urine Leukocytes Urine RBC Urine WBC Ur Culture Indicated? - Diagnostic Findings Procedure: Chest x-ray: image reviewed by me, report reviewed by me - EKG EKG results: interpreted by me, no acute changes EKG shows: sinus rhythm ILuís Jennifer, MD, personally performed the services described in this documentation, ascribed by Linda Obregon RN in my presence, and it is both accurate and complete 422 .
[2016-11-30] MEDS ORDERED: HEPARIN 5,000 UNIT/1 ML VIAL ONE (14:36)
--- NOTE | 2016-11-30 15:09 | Cardiology Operative Report ---
Date of Procedure:: 11/30/16 Post-op diagnosis: same (Progressive chest pain, lateral ST changes which are dynamic, suggestive of high risk unstable angina) Procedure: Procedure Preformed: Left heart cath Coronary angiography Left ventriculography Angiogram of the right femoral artery Angio-Seal of the right femoral artery-successful Surgeon / Physician: Steve Paris Commercial Coordinator: Jose Mora Post-op diagnosis: same (Progressive chest pain, lateral ST changes which are dynamic, suggestive of high risk unstable angina) procedure: The patient was prepped and draped in usual manner. Entered the right femoral artery via the Seldinger technique. I used a sheath and then used a JL4 and engaged left coronary. Multiple views were taken. I then exchanged for a JR4. Multiple views of the right coronary were taken. I then exchanged for an angled pigtail. I crossed the valve. Left ventricular end-diastolic pressures measured. Left ventriculography was done. Left ventricle pullback was done. The catheters were then removed from the patient. Angiogram of the right femoral artery was done either from the follow-through from the LV gram or a separate injection in the right femoral artery. Angio-Seal was done and it was successful. Please see the cath data sheets for the details of catheters used. Complications: None Hemodynamic data: LVEDP was 10 mmHg. Angiographic data: The left main coronary was large and had minimal luminal irregularities. The left anterior descending artery was large and had 2 large sized diagonals and septal software quality specialist. There were minimal luminal irregularities in this vessel. The vessel was large and patulous. The left circumflex system was large and had an obtuse marginal and either a low post lateral branch or a codominant PDA. There were severe tortuosities. The vessels were severely patulous. There are minimal luminal irregularities. There is no significant obstructive disease. The right coronary artery was moderate size and had a PDA. There were minimal luminal irregularities in this vessel. There is no significant obstructive disease. JEWELL left ventriculography revealed normal global/regional left ventricular systolic function. Overall ejection fraction was at least 55%. There is no significant mitral regurgitation. Angiogram of the right femoral artery revealed the puncture site to be in a large vessel, above the bifurcation. It was suitable for Angio-Seal. Impression: No significant obstructive coronary disease-there are minimal luminal irregularities Large, patulous vessels Severe coronary artery tortuosities Normal global/regional LV systolic function, LVEF greater than 55% Normal LVEDP, 10 mmHg Plan/recommendations: The patient will have risk factors optimized. Based on angiogram, he does not have fixed, obstructive coronary artery disease. I suppose the lateral EKG changes could be due to spasm or thrombus. He will remain on aspirin today. I will defer to Dr. Staley regarding choice of other medications, based on her clinical knowledge of the situation. I discussed with the patient and his family that he did not not have significant obstructive coronary disease and does not need a stent or bypass at this time. They voiced understanding and are pleased with the findings. The patient will be on antiplatelet medications to include aspirin indefinitely . Follow-up will be scheduled. Addenda: I saw the patient post-cath. the groin puncture site and distal pulse are stable. vital signs are stable and the patient will be observed closely overnight. Addendum #2: His potassium is high, 5.7, will treat with Kayexalate. However, I would think, if this were causing the ST or T changes, it would been present from when he was admitted , not just later in the day. Specimens: none sent Estimated blood loss: minimal Condition: stable Anesthesia: local, conscious sedation Disposition: floor Additional CC's: Olamide Bey Surgeon / Physician: Steve Paris Estimated blood loss: minimal Specimens: none sent Condition: stable
--- NOTE | 2016-11-30 15:25 | EKG Report ---
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
[2016-11-30] MEDS: SODIUM POLYSTYRENE SULFATE 15 GM/60 ML BOTTLE PO ONE ×2 (18:23→18:53)
--- NOTE | 2016-11-30 19:57 | ECHO Report ---
Merrick Ramirez Exam Date: 11/30/2016 12:46 Referring Physician: Technologist: Arelis Sheets Age: 76 Ht (in): 69 Wt (lb): 156 Gender: M Exam Location: [facility] Echo Indications: diabetes, chest pain, CAD, HTN BP: 142 / 66 HR: 77 Rhythm: bradycardia Technical Quality: Fair IMPRESSIONS Normal LV systolic function, ejection fraction 50%. Grade 1/4 diastolic dysfunction. Mild biatrial enlargement. Mild to moderate left ventricular hypertrophy. Mild mitral and tricuspid regurgitation. Trivial pericardial effusion. A pleural effusion is incidentally noted. MEASUREMENTS (Male / Female) Normal Values 2D ECHO LV Diastolic Diameter PLAX 4.6 cm 4.2 - 5.9 / 3.9 - 5.3 cm LV Systolic Diameter PLAX 2.4 cm LV Fractional Shortening PLAX 48.3 % IVS Diastolic Thickness 1.5 cm 0.6 - 1.0 / 0.6 - 0.9 cm LVPW Diastolic Thickness 1.3 cm 0.6 - 1.0 / 0.6 - 0.9 cm RV Internal Dim ED PLAX 2.8 cm Aortic Root Diameter 2.9 cm LA Systolic Diameter LX 4.3 cm 3.0 - 4.0 / 2.7 - 3.8 cm DOPPLER TR Peak Velocity 170.0 cm/s TR Peak Gradient 11.6 mmHg FINDINGS Left Ventricle Normal left ventricular cavity size. Mild - moderate concentric left ventricular hypertrophy with moderate diastolic dysfunction. Left ventricular ejection fraction is estimated at 50%. Right Ventricle Normal size. Right Atrium The right atrium is mildly enlarged. Left Atrium The left atrium is mildly enlarged. Mitral Valve Mildly thickened mitral valve with mild mitral regurgitation. Aortic Valve The aortic valve is trileaflet and has normal motion. Tricuspid Valve Morphologically normal tricuspid valve. Trace tricuspid valve regurgitation. Tricuspid regurgitation velocities suggest a PAP of 11.6 mmHg + RAP. Pulmonic Valve Morphologically normal pulmonic valve. Pericardium Trivial pericardial effusion + Pleural effusion. Aorta Normal size aortic root and proximal ascending aorta. Olamide Staley MD (Electronically Signed) Final Date: 30 November 2016 19:56
[2016-12-01 05:31] LABS: Basophils % 0.8 % (0.0-0.8); Eosinophils # 0.1 10*3/uL (0.0-0.87); Eosinophils % 2.1 % (0.00-10.9); Hematocrit 33.7 VOL% (42.0-52.0); Hemoglobin 11.6 GM/DL (14.0-18.0); Immature Granulocytes % 0.2 %; Immature Granulocytes Absolute 0.01 #; Lymphocytes # 1.2 10*3/uL (1.4-4.0); Lymphocytes % 24.1 % (21.2-54.2); Mean Corpuscular HGB Conc 34.4 GM/DL (32-36); Mean Corpuscular Hemoglobin 30 PG (27-34); Mean Corpuscular Volume 85.8 FL (87-102); Mean Platelet Volume 9.5 FL (9.6-12.0); Monocytes # 0.4 10*3/uL (0.11-0.8); Monocytes % 8.8 % (1.7-12.7); Neutrophils # 3.1 10*3/uL (1.4-7.4); Platelet Count 242 T/CUMM (130-400); Red Blood Count 3.93 MC/CUMM (3.8-5.5); Red Cell Distribution Width 11.7 % (9.3-17.3); White Blood Count 4.9 T/CUMM (4-12)
[2016-12-01 06:10] LABS: Osmolality,Calculated 275.5 MOS/KG (273-304); Potassium 4.2 MMOL/L (3.5-5.1)
--- NOTE | 2016-12-01 07:29 | EKG Report ---
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
[2016-12-01] MEDS ORDERED: PANTOPRAZOLE 40 MG TABLET PO SCH (09:00)
--- NOTE | 2016-12-01 11:11 | Discharge Summary ---
Hospital Course - Hospital Course Hospital Course: Discharge diagnosis: Abnormal EKG, IL ruled out Abdominal discomfort with change in bowel habits The patient presented to the hospital for evaluation of some chest and abdominal pain. He had some EKG changes that were suspicious for possible IL. Cardiac catheterization was performed and was normal. The patient continued to complain of a change in bowel habits with a decrease in stool caliber and constipation. He also noted some urinary frequency. We discussed further evaluation, and he can have this done as an outpatient. Medication reconciliation has been performed. Regular diet. Activity as tolerated. Follow-up with GI for consideration of outpatient colonoscopy. This note was completed using Ensyn voice recognition software. There may be mechanical development engineer errors as a result. Discharge Plan - Discharge Data Disposition: Disch To Home/Self Care Condition at Discharge: Stable Discharge Diet: advance to your usual diet Activity: resume usual activities as tolerated Hygiene: no restrictions - Discharge Medications Continue Terazosin [Hytrin] 10 mg PO BEDTIME Probenecid [Benemid] 500 mg PO BEDTIME Quinapril HCl [Accupril] 40 mg PO DAILY glipiZIDE [Glipizide] 10 mg PO BID Omeprazole 20 mg PO BEDTIME Gabapentin 600 mg PO TID Aspirin EC Tab 81 mg PO DAILY metFORMIN [Glucophage] 1,000 mg PO BID W/MEALS #0 - Follow Up or Referral Follow Up: Thomas Swan MD [Physician] - 2 Weeks (change in stool caliber, constipation ) - Forms/Instructions Exam - Constitutional Vitals: Period Temp Pulse Resp BP Sys/Quigley Pulse Ox Last 24 Hr 96.5 F-98.7 F 47-61 16-20 110-165/57-93 94-100 Vital signs are noted above. Heart is regular with no murmur or gallop. Chest is clear with no rales or wheezes. Abdomen is soft with some minimal tenderness and no palpable mass. He is awake and alert Discharge Results Procedures and tests throughout hospitalization: Pending Orders 11/30/16 15:44 PSA Total and Free, S Routine 11/30/16 19:05 Urine Culture Routine Labs on day of discharge: Labs from last 24 hours 12/01/16 12/01/16 12/01/16 04:49 04:49 04:49 WBC RBC Hgb Hct MCV MCH MCHC RDW Plt Count MPV Neut % (Auto) Lymph % (Auto) [place] % (Auto) Eos % (Auto) Baso % (Auto) Neut # (Auto) Lymph # (Auto) [place] # (Auto) Eos # (Auto) Baso # (Auto) Immature Gran % Nucleated RBC % Immature Gran # Nucleated RBCs # Immature Plt Fraction Sodium Potassium Chloride Carbon Dioxide Anion Gap BUN Creatinine GFR Calculation BUN/Creatinine Ratio Glucose POC Glucose Hemoglobin A1c 6.3 Calculated Osmolality Calcium Magnesium Troponin I 0.026 B-Natriuretic Peptide 62 12/01/16 12/01/16 11/30/16 04:49 04:49 21:15 WBC 4.9 RBC 3.93 Hgb 11.6 L Hct 33.7 L MCV 85.8 L MCH 30 MCHC 34.4 RDW 11.7 Plt Count 242 MPV 9.5 L Neut % (Auto) 64.0 Lymph % (Auto) 24.1 [place] % (Auto) 8.8 Eos % (Auto) 2.1 Baso % (Auto) 0.8 Neut # (Auto) 3.1 Lymph # (Auto) 1.2 L [place] # (Auto) 0.4 Eos # (Auto) 0.1 Baso # (Auto) 0.0 Immature Gran % 0.2 Nucleated RBC % 0.0 Immature Gran # 0.01 Nucleated RBCs # 0.00 Immature Plt Fraction 0.0 Sodium 139 Potassium 4.2 Chloride 103 Carbon Dioxide 27 Anion Gap 13.2 BUN 13 Creatinine 0.90 GFR Calculation 99 BUN/Creatinine Ratio 14.00 Glucose 79 POC Glucose Hemoglobin A1c Calculated Osmolality 275.5 Calcium 9.0 Magnesium 2.0 Troponin I 0.027 B-Natriuretic Peptide 11/30/16 11/30/16 11/30/16 15:44 14:06 12:09 WBC RBC Hgb Hct MCV MCH MCHC RDW Plt Count MPV Neut % (Auto) Lymph % (Auto) [place] % (Auto) Eos % (Auto) Baso % (Auto) Neut # (Auto) Lymph # (Auto) [place] # (Auto) Eos # (Auto) Baso # (Auto) Immature Gran % Nucleated RBC % Immature Gran # Nucleated RBCs # Immature Plt Fraction Sodium Potassium Chloride Carbon Dioxide Anion Gap BUN Creatinine GFR Calculation BUN/Creatinine Ratio Glucose POC Glucose 83 Hemoglobin A1c Calculated Osmolality Calcium Magnesium Troponin I < 0.015 < 0.015 B-Natriuretic Peptide Preliminary micro results at discharge 11/30/16 19:05 Urine Culture - Preliminary Urine,Voided No Growth at 12 hours. DS: Provider Date of admission: 11/30/16 10:09 Primary care physician: . No PCP Attending physician on admission: Kenzie Gomez MD Consults: 11/30/16 11:52 Consult to Dietitian [CONS] Routine Reason for Dietitian: Other 11/30/16 12:14 Consult to Case Mgmt/Social Srvs [CONS] Routine Reason for Case Mgmt/Social Srvs: Discharge Planning Consult to Physician [CONS] Routine Comment: Consulting Provider: Olamide Staley When should Consulting Provider be notified: Now Consult Notification Comment: chest tightness started at 4 a.m. w/exertion/w/ SOB HX: IL but denies stent placement Discharging clinician: Jayme Santana MD Expected date of discharge: 12/01/16
[2016-12-01 11:58] VITALS: BP 142/82
--- NOTE | 2016-12-01 13:25 | Cardiology Progress Note ---
Sabas Rubalcava Vanessa, RN, am scribing for, and in the presence of, Olamide Staley MD 13:25. Assessment and Plan - Time spent with patient Time spent with patient: Greater than 30 minutes (1) Chest pain Status: Acute Assessment and plan: SEE PLAN OF CARE LISTED BELOW. Current Visit: Yes (2) Diabetes mellitus Status: Chronic Assessment and plan: SEE PLAN OF CARE LISTED BELOW. Current Visit: No (3) History of coronary artery disease Status: Chronic Assessment and plan: SEE PLAN OF CARE LISTED BELOW. Current Visit: No (4) Hypertension Status: Chronic Assessment and plan: SEE PLAN OF CARE LISTED BELOW. Current Visit: No Cardiology - PN: Subj Interval history: PRIMARY WORK DISTRIBUTOR: DR. BEY SUMMARY: Mr. Ramirez, 76 year old BM, PMHx of dyslipidemia, hypertension, diabetes, and former smoking. Reported history of previous NM x 3 since his 30s, but denies previous history of PTCA and/or stenting. Other history includes GERD and arthritis. Patient seen by Dr. Bey at [facility] clinic for dyspnea on exertion with exertional chest tightness, flank pain that was suspicious for diverticulitis and was scheduled for upcoming myocardial perfusion stress test and echocardiogram on December 13. However, he presented to the ED on the morning of 11/30 after awakening with chest tightness across entire chest. Serial EKGs demonstrated a change with lateral and inferior changes. Clinical findings suspicius for unstable angina and coronary disease. He was subsequently taken for urgent left heart catheterization per Dr. Paris on the afternoon of 11/30. 2016: Cardiac catheterization yesterday demonstrated minimal luminal irregularities but no significant obstructive coronary disease, EF 55%. Serial troponin levels with trivial elevation, peaking at 0.027. Hyperkalemia resolved today after Kayexalate dose yesterday with K+ 4.2 this morning. Renal function stable post contrast exposure. RFA cath site without hematoma but does have bruit noted. We will review ultrasound prior to discharge home. Distal pulses are palpable. ASSESSMENT/PLAN: 1. EXERTIONAL CHEST PAIN -no significant obstructive CAD per cardiac cath on 11/29. EKG changes possibly due to spasm or thrombus. We will optimize risk factors at this time. Continue ASA. Okay for discharge home today. Follow-up with Dr. Bey in 2 weeks with EKG, CBC, BMP 2. HYPERTENSION - Well controlled at this time. Review and continue antihypertensives 3. DYSLIPIDEMIA - Check FLP 4. DIABETES - Chronic. Glucose stable this afternoon. Defer to hospital medicine. 5. RIGHT FEMORAL ARTERY BRUIT-arterial ultrasound of right lower extremity to rule out Exam (Progress Note) - Constitutional Vitals: Period Temp Pulse Resp BP Sys/Quigley Pulse Ox Last 24 Hr 96.5 F-98.7 F 47-71 16-24 101-165/57-93 94-100 Exam: General appearance: normal weight, no acute distress - Head Head exam: Present: normal inspection, normocephalic, atraumatic. Absent: hematoma, laceration - Eye Eye exam: Present: EOMI. Absent: conjunctival injection, nystagmus, periorbital swelling, scleral icterus, laceration to eyelids Pupils: Present: PERRL. Absent: constricted, dilated, fixed, irregular, unequal - ENT ENT exam: Present: normal exam, normal external ear exam - Neck Neck exam: Present: normal inspection. Absent: lymphadenopathy, meningismus, tenderness, thyromegaly - Respiratory Respiratory exam: Present: clear to auscultation bilaterally. Absent: accessory muscle use, chest wall tenderness - Cardiovascular Cardiovascular exam: Present: regular rate and rhythm. Absent: carotid bruit, gallop, JVD, rubs - GI/Abdominal GI/Abdominal exam: Present: normal bowel sounds, soft. Absent: distended, firm , guarding, hernia, mass, tenderness, rebound. - Extremities Exam Extremities exam: Present: Decreased pulses, normal capillary refill. Absent: calf tenderness, edema - Back Exam Back exam: Present: normal inspection. Absent: muscle spasm, vertebral tenderness - Neurological Exam Neurological exam: Present: alert, oriented X3, grossly intact without resting or intention tremor - Psychiatric Psychiatric exam: Present: normal affect, normal mood - Skin Skin exam: Present: normal color, warm, dry, intact. Absent: cyanosis, diaphoretic, rash, urticaria Right groin with 2+ femoral pulse, bruit present, no ecchymosis or hematoma. Result/EKG - Labs CBC & BMP: 12/01/16 04:49 12/01/16 04:49 Lab Results: I have reviewed the past 24 hour labs Labs: Laboratory Results - last 24 hr 11/30/16 11/30/16 11/30/16 12:09 14:06 15:44 WBC RBC Hgb Hct MCV MCH MCHC RDW Plt Count MPV Neut % (Auto) Lymph % (Auto) [place] % (Auto) Eos % (Auto) Baso % (Auto) Neut # (Auto) Lymph # (Auto) [place] # (Auto) Eos # (Auto) Baso # (Auto) Immature Gran % Nucleated RBC % Immature Gran # Nucleated RBCs # Immature Plt Fraction Sodium Potassium Chloride Carbon Dioxide Anion Gap BUN Creatinine GFR Calculation BUN/Creatinine Ratio Glucose POC Glucose 83 Hemoglobin A1c Calculated Osmolality Calcium Magnesium Troponin I < 0.015 < 0.015 B-Natriuretic Peptide 11/30/16 12/01/16 12/01/16 21:15 04:49 04:49 WBC 4.9 RBC 3.93 Hgb 11.6 L Hct 33.7 L MCV 85.8 L MCH 30 MCHC 34.4 RDW 11.7 Plt Count 242 MPV 9.5 L Neut % (Auto) 64.0 Lymph % (Auto) 24.1 [place] % (Auto) 8.8 Eos % (Auto) 2.1 Baso % (Auto) 0.8 Neut # (Auto) 3.1 Lymph # (Auto) 1.2 L [place] # (Auto) 0.4 Eos # (Auto) 0.1 Baso # (Auto) 0.0 Immature Gran % 0.2 Nucleated RBC % 0.0 Immature Gran # 0.01 Nucleated RBCs # 0.00 Immature Plt Fraction 0.0 Sodium 139 Potassium 4.2 Chloride 103 Carbon Dioxide 27 Anion Gap 13.2 BUN 13 Creatinine 0.90 GFR Calculation 99 BUN/Creatinine Ratio 14.00 Glucose 79 POC Glucose Hemoglobin A1c Calculated Osmolality 275.5 Calcium 9.0 Magnesium 2.0 Troponin I 0.027 B-Natriuretic Peptide 12/01/16 12/01/16 12/01/16 04:49 04:49 04:49 WBC RBC Hgb Hct MCV MCH MCHC RDW Plt Count MPV Neut % (Auto) Lymph % (Auto) [place] % (Auto) Eos % (Auto) Baso % (Auto) Neut # (Auto) Lymph # (Auto) [place] # (Auto) Eos # (Auto) Baso # (Auto) Immature Gran % Nucleated RBC % Immature Gran # Nucleated RBCs # Immature Plt Fraction Sodium Potassium Chloride Carbon Dioxide Anion Gap BUN Creatinine GFR Calculation BUN/Creatinine Ratio Glucose POC Glucose Hemoglobin A1c 6.3 Calculated Osmolality Calcium Magnesium Troponin I 0.026 B-Natriuretic Peptide 62 - EKG EKG results: interpreted by me, no acute changes EKG shows: bradycardia (Sinus bradycardia) Quality Measures - VTE Contraindication to Pharmacological VTE Prophylaxis: High Risk of Bleeding Specialty Discharge - Follow Up or Referrals Follow up with: Thomas Swan MD [Physician] - 2 Weeks (change in stool caliber, constipation ) Billy Bey MD [Physician] - 2 Weeks (Follow up post cath with Dr. Bey in 2 weeks with EKG, CBC, BMP) ILuís Jennifer, MD, personally performed the services described in this documentation, ascribed by Linda Obregon, RN in my presence, and it is both accurate and complete 325 .
[2016-12-01] MEDS: ENOXAPARIN 40 MG/0.4 ML SYRINGE SUBCUT SCH (13:48)
--- NOTE | 2016-12-01 14:14 | Ultrasound Report ---
Exam: US arterial duplex LE RT pseudoaneurysm evaluation Date: 12/01/2016 12:06 PM Indication: Post heart catheter right common femoral artery bruit Comparison: None Technical grayscale and color flow analysis and spectral wave analysis performed with ultrasound imaging stored and captured. Findings: The common femoral artery, femoral vein exhibit normal color flow and spectral wave analysis. Minimal atherosclerotic plaque in the common femoral artery. No obvious pseudoaneurysm present. No AV fistula present. Impression: 1. No evidence of pseudoaneurysm. 2. Minimal atherosclerotic plaque in the common femoral artery. 3. Limited study the remaining right lower leg was not evaluated PROCEDURE INTERPRETED AT [facility] DEPARTMENT OF RADIOLOGY Final Report Signed by: Dr. Lb Bella
== END 2016-12-01 16:16 | disposition home or self-care (01) ==
LOC: EDUNIT# → N.EDINP 08:28 → N.ED 08:28 → SUATTDRO 10:09 → N.EDINP 11:01 → N.TELEN 11:03
PROVIDERS: ADMIT Internal Medicine; ATTEND Internal Medicine Geriatric Medicine
PROC: CLCCHCL (ICD-10-PCS; 2016-11-30 14:45)

== ENCOUNTER 2018-12-12 21:46 | Observation (INO) ==
[2018-12-12] MEDS ORDERED: ONDANSETRON 4 MG/2 ML VIAL IV STA (22:39)
[2018-12-12] MEDS ORDERED: MORPHINE 4 MG/1 ML VIAL IV STA (22:39)
[2018-12-12] MEDS ORDERED: ASPIRIN 325 MG TABLET PO STA (22:39)
[2018-12-12] MEDS ORDERED: ALUM/MAG/SIMETH/LIDO VISC 1:1 30 ML BOTTLE PO STA (22:39)
[2018-12-12 22:46] LABS: Basophils % 0.8 % (0.0-0.8); Eosinophils # 0.2 10*3/uL (0.0-0.87); Eosinophils % 3.3 % (0.00-10.9); Hematocrit 34.1 VOL% (42.0-52.0); Hemoglobin 10.9 GM/DL (14.0-18.0); Immature Granulocytes % 0.6 %; Immature Granulocytes Absolute 0.03 #; Lymphocytes # 1.3 10*3/uL (1.4-4.0); Lymphocytes % 26.8 % (21.2-54.2); Mean Corpuscular Volume 91.9 FL (87-102); Mean Platelet Volume 10.1 FL (9.6-12.0); Monocytes % 9.5 % (1.7-12.7); Platelet Count 201 T/CUMM (130-400); Red Blood Count 3.71 MC/CUMM (3.8-5.5); Red Cell Distribution Width 12.5 % (9.3-17.3); White Blood Count 4.8 T/CUMM (4-12)
[2018-12-12 22:51] LABS: PT Patient Result 11.1 SECS (9.6-12.2)
[2018-12-12 22:58] LABS: Alanine Aminotransferase 26 U/L (16-61); Albumin 3.2 G/DL (3.4-5.0); Alkaline Phosphatase 48 U/L (45-117); Aspartate Amino Transferase 29 U/L (0-37); Bilirubin,Total < 0.39 MG/DL (0.2-1.0); Blood Urea Nitrogen 15 MG/DL (7-18); Calcium 8.6 MG/DL (8.5-10.1); Glucose 107 MG/DL (74-106); Total Protein 6.4 G/DL (6.4-8.3)
[2018-12-12 23:02] LABS: Estimated Glom Filtration Rate 0 ML/MIN
[2018-12-13] MEDS ORDERED: ACETAMINOPHEN 325 MG TABLET PO PRN (00:33)
[2018-12-13] MEDS ORDERED: diphenhydrAMINE CAP 25 MG CAPSULE PO PRN (00:33)
[2018-12-13] MEDS ORDERED: guaiFENesin/DM ER 600-30 MG TABLET PO PRN (00:33)
[2018-12-13] MEDS ORDERED: MORPHINE 4 MG/1 ML VIAL IV PRN (00:33)
[2018-12-13] MEDS ORDERED: ONDANSETRON 4 MG/2 ML VIAL IV PRN (00:33)
[2018-12-13] MEDS ORDERED: traZODone 50 MG TABLET PO PRN (00:33)
[2018-12-13] MEDS ORDERED: NICOTINE 21 MG/24 HR PATCH TRANSDERM PRN (00:33)
[2018-12-13 01:43] LABS: Risk Ratio 3.25; Thyroid Stimulating Hormone 1.77 uIU/ml (0.358-3.74)
[2018-12-13] MEDS ORDERED: GLUCAGON 1 MG VIAL IM PRN (02:43)
[2018-12-13] MEDS ORDERED: DEXTROSE 50% 25 GM/50 ML VIAL IV PRN (02:43)
[2018-12-13] MEDS: INSULIN LISPRO 100 UNIT/ML SUBCUT SCH ×4 (08:15→21:00)
[2018-12-13] MEDS: PANTOPRAZOLE 40 MG TABLET PO SCH (09:04)
[2018-12-13] MEDS: ASPIRIN EC 81 MG TABLET PO SCH (09:04)
[2018-12-13] MEDS ORDERED: ASPIRIN EC 81 MG TABLET PO SCH (12:00)
[2018-12-13] MEDS: CYANOCOBALAMIN 500 MCG TABLET PO SCH (12:18)
[2018-12-13] MEDS: ENALAPRIL 20 MG TABLET PO SCH (12:18)
[2018-12-13] MEDS: ESCITALOPRAM 10 MG TABLET PO SCH (12:18)
[2018-12-13] MEDS: ASCORBIC ACID 500 MG TABLET PO SCH (12:18)
[2018-12-13] MEDS: CHOLECALCIFEROL 400 UNIT TABLET PO SCH (12:18)
[2018-12-13] MEDS: PROBENECID 500 MG TABLET PO SCH (12:23)
[2018-12-13] MEDS: OMEGA 3 ACID ETHYL ESTERS 1 GM CAPSULE PO SCH (21:46)
[2018-12-13] MEDS: traMADol 50 MG TABLET PO SCH (21:46)
[2018-12-14] MEDS: INSULIN LISPRO 100 UNIT/ML SUBCUT SCH (08:04)
[2018-12-14 08:06] VITALS: BP 171/88
[2018-12-14] MEDS: PROBENECID 500 MG TABLET PO SCH (08:47)
[2018-12-14] MEDS: ESCITALOPRAM 10 MG TABLET PO SCH (08:47)
[2018-12-14] MEDS: CYANOCOBALAMIN 500 MCG TABLET PO SCH (08:48)
[2018-12-14] MEDS: OMEGA 3 ACID ETHYL ESTERS 1 GM CAPSULE PO SCH (08:48)
[2018-12-14] MEDS: ASPIRIN EC 81 MG TABLET PO SCH (08:48)
[2018-12-14] MEDS: CHOLECALCIFEROL 400 UNIT TABLET PO SCH (08:48)
[2018-12-14] MEDS: traMADol 50 MG TABLET PO SCH (08:48)
[2018-12-14] MEDS: PANTOPRAZOLE 40 MG TABLET PO SCH (08:48)
[2018-12-14] MEDS: ENALAPRIL 20 MG TABLET PO SCH (08:48)
[2018-12-14] MEDS: ASCORBIC ACID 500 MG TABLET PO SCH (08:48)
== END 2018-12-14 10:58 | disposition home health service (06) ==
LOC: EDBD → EDUNIT# → N.EDINP 21:46 → N.ED 21:46 → N.TELEN 12-13 02:14
PROVIDERS: ADMIT Internal Medicine; ATTEND Internal Medicine